=== PATIENT | male | born 1985 | race Caucasian/White ===

== ENCOUNTER 2021-07-01 12:44 | Emergency (ER) | payer OTHER ==
[~2021-07-01] VITALS: Ht 172.7 cm; Wt 81.7 kg
[2021-07-01 13:28] LABS: HEMATOCRIT 50.3 % (42.0-52.0); MCHC 33.8 g/dL (28.0-37.0); MCV 85.8 fL (80.0-100.0); RBC 5.86 mil/uL (4.50-6.00); RDW 13.2 % (10.5-14.5); WBC 10.1 thou/uL (4.0-11.0)
[2021-07-01 13:36] LABS: CREATININE 0.9 mg/dL (0.7-1.3); POTASSIUM 4.7 mmol/L (3.5-5.1)
[2021-07-01 13:42] LABS: ALBUMIN 3.8 g/dL (3.4-5.0); TOTAL BILIRUBIN 0.2 mg/dL (0.2-1.0); TOTAL PROTEIN 7.2 g/dL (6.4-8.2)
[2021-07-01] MEDS ORDERED: PREDNISONE 20 M20 MG PO (14:02)
[2021-07-01] MEDS ORDERED: VENTOLIN HFA 1818 GM INH (14:02)
[2021-07-01 14:10] VITALS: BP 123/82
--- NOTE | 2021-07-01 16:09 | EKG ---
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 : 1985 Requested By: Paulina Felix Order Number: [id number] MD: Raj Mckinney Measurements Intervals [place] Rate: 79 P: 68 CT: 125 QRS: 63 QRSD: 87 T: 39 QT: 355 QTc: 407 Interpretive Statements Sinus rhythm ST elev, probable normal early repol pattern Baseline wander in lead(s) V2,V3,V4 No previous ECG available for comparison Electronically Signed On 07-01-2021 16:09:27 CDT by Raj Mckinney [email or web address] <ELECTRONICALLY SIGNED> By: Raj Mckinney MD, [facility] 07/01/21 1609 1252 1252 Raj Mckinney MD, FACC /EPI
== END 2021-07-01 14:12 | disposition home or self-care (01) ==
LOC: ER 12:44
PROVIDERS: Nurse Practitioner Family
DX: J45.901 Unspecified asthma with (acute) exacerbation (principal); J44.9 Chronic obstructive pulmonary disease, unspecified; F17.200 Nicotine dependence, unspecified, uncomplicated

== ENCOUNTER 2021-10-14 11:22 | Emergency (ER) | payer OTHER ==
[~2021-10-14 11:22] MED LIST: PREDNISONE 20 M20 MG PO; VENTOLIN HFA 1818 GM INH
== END 2021-10-14 11:30 | disposition left against medical advice (07) ==
LOC: ER 11:22
DX: R06.02 Shortness of breath (principal); R07.89 Other chest pain; J45.909 Unspecified asthma, uncomplicated; F15.10 Other stimulant abuse, uncomplicated; Z53.21 Procedure and treatment not carried out due to patient leaving prior to being seen by health care provider; Z88.5 Allergy status to narcotic agent

== ENCOUNTER 2021-10-17 12:33 | Emergency (ER) | payer OTHER ==
[~2021-10-17] VITALS: Ht 172.7 cm; Wt 68.0 kg
[2021-10-17 13:06] LABS: BASOPHILS 1.1 % (0.0-2.0); EOSINOPHILS 8.1 % (0.0-3.0); HEMATOCRIT 46.3 % (42.0-52.0); HEMOGLOBIN 15.7 gm/dL (14.0-18.0); LYMPHOCYTES 24.3 % (24.0-44.0); MCH 28.2 pg (26.0-34.0); MCHC 33.8 g/dL (28.0-37.0); MCV 83.6 fL (80.0-100.0); MONOCYTES 9.1 % (1.0-8.0); PLATELET COUNT 257 thou/uL (150-400); POLYS 57.4 % (36.0-66.0); RBC 5.54 mil/uL (4.50-6.00); RDW 13.6 % (10.5-14.5); WBC 8.7 thou/uL (4.0-11.0)
[2021-10-17 13:13] LABS: CALCIUM 9.3 mg/dL (8.5-10.1); CREATININE 0.8 mg/dL (0.7-1.3); POTASSIUM 4.5 mmol/L (3.5-5.1)
[2021-10-17 13:20] LABS: TOTAL BILIRUBIN 0.5 mg/dL (0.2-1.0); TOTAL PROTEIN 7.3 g/dL (6.4-8.2)
[2021-10-17] MEDS ORDERED: SINGULAIR 10 MG10 M1 PO (15:23)
[2021-10-17] MEDS ORDERED: PREDNISONE 10 M10 MG PO (15:23)
[2021-10-17] MEDS ORDERED: PROAIR HFA8.5 GM INH (15:23)
[2021-10-17 15:26] VITALS: BP 132/97
--- NOTE | 2021-10-18 08:08 | EKG ---
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 : 1985 Requested By: Bridget Pérez Order Number: [id number] MD: Nam Ledezma Measurements Intervals [place] Rate: 74 P: 53 AL: 126 QRS: 39 QRSD: 90 T: 16 QT: 376 QTc: 418 Interpretive Statements Sinus rhythm No significant abnormality Compared to ECG 07/01/2021 12:52:32 No significant change was found Electronically Signed On 10-18-2021 8:08:12 CLINICAL EVALUATOR by Nam Ledezma [email or web address] <ELECTRONICALLY SIGNED> By: Nam Ledezma MD, [facility]GED WITH [facility] 10/18/21 0808 1241 1241 Nam Ledezma MD, FACC /EPI
== END 2021-10-17 15:26 | disposition home or self-care (01) ==
LOC: ER 12:33
PROVIDERS: Nurse Practitioner
DX: J45.909 Unspecified asthma, uncomplicated (principal); Z20.822 Contact with and (suspected) exposure to COVID-19; Z88.5 Allergy status to narcotic agent